=== PATIENT | male | born 1945 | race Caucasian/White ===

== ENCOUNTER 2022-04-08 20:09 | Observation (INO) | payer MEDICARE ==
[2022-04-08] VITALS (12 sets, daily range): BP systolic 148–168; BP diastolic 76–97
[~2022-04-08] VITALS: Ht 185.4 cm; Wt 107.4 kg
[~2022-04-08 20:09] MED LIST: AUGMENTIN875TAB PO; BOOSTRIX IM; CIALIS10 MG PO; CIALIS5 MG PO; LORTAB 10 PO; XARELTO10 MG OR
[2022-04-08 20:39] LABS: HEMATOCRIT 40.8 % (39.0-50.0); HEMOGLOBIN 14.3 g/dl (14.0-18.0); IMMATURE GRANULOCYTES 0.1 % (0.0-5.0); MEAN CELL VOLUME 91.5 fL CALC (80.0-100.0); MEAN CORPUSCULAR HGB 32.1 pG CALC (26.0-32.0); NEUT# 5.72 thou/uL (1.82-7.42); RED BLOOD COUNT 4.46 mill/uL (4.70-6.10); RED CELL DISTRI WIDTH 12.3 % (11.5-15.5)
[2022-04-08 21:01] LABS: PROTHROMBIN TIME 10.3 SECONDS (9.0-12.5)
[2022-04-08 21:04] LABS: ALKALINE PHOSPHATASE 56 u/l (38-126); ANION GAP 11 (6-22 (CALC)); BILIRUBIN, TOTAL 0.6 mg/dL (0.0-1.4); BUN 18 mg/dL (8-23); BUN/CREATININE RATIO 13 (12-20 (CALC)); CARBON DIOXIDE 27 mmol/l (22-30); CHLORIDE 104 mmol/l (95-108); CREATININE 1.3 mg/dL (0.7-1.3); GFR FOR AFR.AMER. > 60 ML/MIN (>=60 (CALC)); GFR OTHER RACES 54 ML/MIN (>=60 (CALC)); MAGNESIUM 2.5 mg/dL (1.6-2.3); POTASSIUM 3.7 mmol/l (3.5-5.1); SGOT/AST 45 u/l (19-48); SODIUM 138 mmol/l (137-146); TOTAL PROTEIN 7.6 g/dL (6.3-8.2)
[2022-04-08 21:14] LABS: ALBUMIN 4.6 g/dL (3.2-5.0)
[2022-04-08 22:09] LABS: URINE BILIRUBIN - DIPSTICK NEGATIVE (NEGATIVE); URINE BLOOD DIPSTICK TRACE-INTACT (NEGATIVE); URINE COLOR YELLOW; URINE GLUCOSE - DIPSTICK NEGATIVE (NEGATIVE); URINE KETONE NEGATIVE (NEGATIVE); URINE LEUK ESTERASE NEGATIVE (NEGATIVE); URINE NITRITE - DIPSTICK NEGATIVE (Negative); URINE PROTEIN - DIPSTICK 30 mg/dL (NEG-TRACE); URINE SPECIFIC GRAVITY 1.025; URINE UROBILINOGEN - DIPSTICK 0.2 E.U./dL (0.2)
[2022-04-08 22:10] LABS: URINE RBC 0-2 RBC/hpf (0-5); URINE WBC 0-2 WBC/hpf (0-5)
[2022-04-09] MEDS ORDERED: BRIMONIDINE0.2 % OD (00:51)
[2022-04-09] MEDS ORDERED: SIMBRINZA1 SUS OD (00:53)
[2022-04-09] MEDS ORDERED: TIMOLOL 0.5%5 ML OP (00:55)
[2022-04-09] MEDS ORDERED: LOTEMAX SM 0.38% OD (00:56)
[2022-04-09] MEDS ORDERED: BRINZOLAMIDE 1% OD (00:59)
[2022-04-09] MEDS ORDERED: LATANOPROST0.005 % OD (01:01)
[2022-04-09 04:28] VITALS: BP 156/77
[2022-04-09 06:35] VITALS: BP 166/80
[2022-04-09 11:00] VITALS: BP 146/60
== END 2022-04-09 15:56 | disposition home or self-care (01) ==
LOC: ED 20:09 → ED-I 20:22 → ED 23:26 → MS2 23:27
PROVIDERS: Family Medicine; ADMIT Internal Medicine; ATTEND Internal Medicine
DX: R55 Syncope and collapse (principal); R90.82 White matter disease, unspecified; R47.01 Aphasia; S00.31XA Abrasion of nose, initial encounter; W18.39XA Other fall on same level, initial encounter; Y92.003 Bedroom of unspecified non-institutional (private) residence as the place of occurrence of the external cause; Z98.890 Other specified postprocedural states; Z20.822 Contact with and (suspected) exposure to COVID-19
CPT/HCPCS: Q9967